=== PATIENT | male | born 1960 | race Caucasian/White ===

== ENCOUNTER 2017-10-05 10:59 | Emergency (ER) | payer OTHER ==
[2017-10-05] MEDS: FLUORESCEIN STRIP BOTH EYES (11:30)
[2017-10-05] MEDS: TETRACAINE 0.5% 4 ML OPH BOTH EYES (11:31)
[2017-10-05] MEDS: DIPHENHYDRAMINE 50 MG INJ IV (12:39)
[2017-10-05] MEDS: METOCLOPRAMIDE 10 MG INJ IV (12:40)
[2017-10-05] MEDS: SOD CHLORIDE 0.9% 500 ML IV (12:41)
== END 2017-10-05 14:05 | disposition home or self-care (01) ==
LOC: FTE 10:59
DX: J32.9 Chronic sinusitis, unspecified (principal); G43.909 Migraine, unspecified, not intractable, without status migrainosus; I10 Essential (primary) hypertension
CPT/HCPCS: 70450; 70480; 96374; 96375; 99285-25

== ENCOUNTER 2018-01-15 13:07 | Emergency (ER) | payer OTHER ==
[2018-01-15] MEDS: HYDROCODONE/APAP (5/325) TAB PO (14:20)
== END 2018-01-15 16:36 | disposition home or self-care (01) ==
LOC: FTE 13:07
DX: S00.81XA Abrasion of other part of head, initial encounter (principal); I10 Essential (primary) hypertension; R51 Headache; Y00.XXXA Assault by blunt object, initial encounter
CPT/HCPCS: 70450; 71110; 73140; 99284-25

== ENCOUNTER 2018-03-01 08:25 | Emergency (ER) | payer OTHER ==
[2018-03-01] MEDS: CEFTRIAXONE 1 GM INJ IM (08:58)
[2018-03-01] MEDS: LIDOCAINE 1% (MPF) 5 ML VIAL INJ (08:58)
[2018-03-01] MEDS: IBUPROFEN 800 MG TAB PO (09:02)
== END 2018-03-01 09:12 | disposition home or self-care (01) ==
LOC: FTE 08:25
DX: J02.9 Acute pharyngitis, unspecified (principal); I10 Essential (primary) hypertension; Z79.84 Long term (current) use of oral hypoglycemic drugs
CPT/HCPCS: 96372; 99284-25; J0696

== ENCOUNTER 2018-04-26 11:00 | Emergency (ER) | payer OTHER ==
[2018-04-26] MEDS: KETOROLAC 30 MG INJ IM (13:10)
== END 2018-04-26 14:21 | disposition home or self-care (01) ==
LOC: FTE 11:00
DX: J32.9 Chronic sinusitis, unspecified (principal); I10 Essential (primary) hypertension; E11.9 Type 2 diabetes mellitus without complications; Z79.84 Long term (current) use of oral hypoglycemic drugs
CPT/HCPCS: 71046; 96372; 99284-25